=== PATIENT | male | born 1975 | race Caucasian/White ===

== ENCOUNTER → 2016-12-05 | Outpatient (CLI) | payer BC ==
[~2016-12-05] MED LIST: CATHETER FLUSH 10 ML SYR IV PRN; CLOT45CR46 TOP; FLC150T PO; IOHEXOL 350 MG/ML 100 ML (OMNIPAQUE 350) VIAL IV ONE; NS 100 ML (IVPB) BAG IV ONE
--- NOTE | 2016-12-05 16:34 | Diagnostic Imaging Report ---
PROCEDURE: CT abdomen and pelvis with and without contrast. TECHNIQUE: Precontrast acquisitions were acquired through the abdomen and pelvis. Multiple contiguous axial images were obtained through the abdomen and pelvis after the administration of intravenous contrast. INDICATION: Right-sided lower back and flank pain. CONTRAST: 100 mL of Omnipaque 350 was administered intravenously. COMPARISON: 05/20/2011. FINDINGS: The lung bases are clear. The liver demonstrates diffuse steatosis. No focal mass. The gallbladder demonstrates a noncalcified stone. The pancreas, spleen, and adrenal glands appear unremarkable. The kidneys have symmetric enhancement and contrast excretion. There is an aortic dissection flap seen in the lower aspect of the abdominal aorta below the takeoff of the inferior mesenteric artery and extending to the aortic bifurcation. This is new from the 05/20/2011 comparison exam. There is no associated aneurysm. There is no periaortic retroperitoneal hematoma. Distal to the dissection, there are completely opacified iliac arteries. The unenhanced phase unfortunately has slight contrast contamination in the renal collecting system when the patient was prepared and CT scan obtained which could obscure a small stone. No obstructive stone or hydronephrosis is seen. No significant free fluid or fluid collection in the abdomen or pelvis is noted. The osseous structures appear grossly unremarkable. IMPRESSION: There is an aortic dissection involving the distal aspect of the abdominal aorta distal to the EARLENE takeoff to the aortic bifurcation. There is no associated aneurysm or hematoma. The iliac arteries demonstrate normal perfusion. Dr. Pope was called and the findings were by Dr. Herron at the time of dictation. The report was faxed to Dr. Pope at 4:29 p.m. 12/05/2016/millicent Dictated by: Dictated on workstation # [id number]
== END ==
LOC: RAD 14:19
PROVIDERS: ATTEND Urology
DX: M54.5 Low back pain (principal); R10.84 Generalized abdominal pain
CPT/HCPCS: 74178

== ENCOUNTER → 2022-03-17 | Outpatient (CLI) | payer BC ==
[~2022-03-17] MED LIST changes: -CATHETER FLUSH 10 ML SYR IV PRN; -IOHEXOL 350 MG/ML 100 ML (OMNIPAQUE 350) VIAL IV ONE; -NS 100 ML (IVPB) BAG IV ONE
--- NOTE | 2022-03-17 17:09 | Diagnostic Imaging Report ---
INDICATION: Dyspnea. COMPARISON: None. FINDINGS: Frontal and lateral views of the chest demonstrate normal heart size and pulmonary vascularity. The lungs are clear. There are no signs of infiltrate, pleural effusions or pneumothoraces. The visualized osseous structures show no acute abnormalities. IMPRESSION: No acute process. No signs of infiltrates, effusions or pneumothoraces. Dictated by: Dictated on workstation # [id number]
== END ==
LOC: RAD 15:58
PROVIDERS: ATTEND Nurse Practitioner Family
DX: R06.00 Dyspnea, unspecified (principal)
CPT/HCPCS: 36415; 71046; 85379

== ENCOUNTER → 2023-08-07 | Outpatient (CLI) | payer BC ==
[2023-08-07 10:29] VITALS: BP 127/78
--- NOTE | 2023-08-07 11:57 | Cardiology Stress Test Report ---
Stress Test Report Date of Procedure/Referring: Date of Procedure: Aug 07, 2023 PCP Darnell Bills MD Admitting Physician Admitting Physician: Attending Physician: Blane Currie MD Baseline Heart Rate: 73 Baseline Blood Pressure: Blood Pressure Systolic: 127 Blood Pressure Diastolic: 78 Baseline EKG: Baseline EKG: NSR Summary/Conclusion: Summary: In summary, the patient started exercising with a baseline heart rate, blood pressure and EKG mentioned above Patient was able to exercise for a total of 7 minutes on Sg protocol, METs 8.5 Maximum heart rate 153 Maximum blood pressure 189/86 Stress EKG, Minimal nondiagnostic changes Recovery EKG , Return to baseline Conclusion: 1. Good exercise tolerance for a total of 7 minutes on Sg protocol, 10.5 METs, achieving 88 percent of maximum expected heart rate 2. Minimal nondiagnostic EKG changes with exercise returned to baseline during recovery 3. No arrhythmia was noted Copy Copies To 1: DARNELL BILLS MD, BASHAR J MD Aug 07, 2023 11:57
== END ==
LOC: CARD 08:58
PROVIDERS: ATTEND Internal Medicine Cardiovascular Disease
DX: R00.0 Tachycardia, unspecified (principal)
CPT/HCPCS: 93017; 93306